=== PATIENT | female | born 1960 | race Asian ===

== ENCOUNTER → 2022-11-26 13:12 | Outpatient (BNVA) | payer MEDICARE, SELFPAY | PROVIDERS: PCP Internal Medicine; Visit Provider Dietitian, Registered | DX: E11.9 Type 2 diabetes mellitus without complications (principal) | CPT/HCPCS: 97802 ==

== ENCOUNTER 2025-07-27 14:39 | Outpatient (AMB) | payer MEDICARE, SELFPAY ==
--- NOTE | 2025-07-27 14:39 | A.PHYSOV ---
Intake Visit Reasons: right hip pain Intake Note: Patient is a 65 year old female in office today for a follow up visit on right hip pain. Head Baggage Porter Required: Yes Head Baggage Porter Name: rolo house [id number] Allergies No Known Allergies Allergy (Verified 07/27/25 14:40) HPI Comments Details: History of Present Illness The patient is a 65 year old female presenting for a follow-up visit for persistent lower back pain radiating to the right leg. She denies any recent injury. An MRI of the lumbar-sacral spine from February 12, 2023, revealed an L5-S1 disc herniation. She reports her pain is now more severe and is present even when walking or lying down. Associated symptoms include right leg swelling, weakness, and recurrent falls. The pain is also localized over the right ischial tuberosity. Previous treatments include a right L5 transforaminal injection on July 26, 2023, and a sacroiliac joint injection on September 07, 2023, neither of which provided relief. She was previously advised to use a pillow to relieve pressure on the ischial area while sitting, but reports she does not have one with a hole. She has tried Tylenol for pain relief. In her past medical history, she received a right shoulder subacromial injection on November 18, 2023, and reports her shoulder is now feeling better. Since her last follow-up visit she has been exercising regularly. Unfortunately pain has been getting progressively worse. She reports more progressive weakness at this time. She reports pain in the right L5/S1 dermatomal distribution. Pain is rated 8/10. Pain Description - Location: The patient reports persistent lower back pain that radiates to the right leg and is also localized over the right ischial tuberosity. - Severity: The pain has become more severe. - Associated Symptoms: She experiences right leg swelling, weakness in the entire leg, and has had multiple falls. - Exacerbating Factors: Pain is worse with walking, standing, and sitting, and is also present when lying down. - Relieving Factors: She reports feeling better when sitting on a pillow. Results - Imaging: - Lumbar sacral spine MRI (02/12/23): Consistent with L5-S1 disc herniation. [facility] Medical History (Updated 07/27/25 @ 15:07 by Aravind Silver DO) Lumbar radiculitis Lumbar disc herniation Surgical History H/O splenectomy History of Social History Alcohol intake: current Alcohol intake frequency: does not drink Patient Tobacco Use Status: Never used Tobacco Current occupational status: unemployed Review of Systems Narrative Review of Systems - Musculoskeletal: Reports severe lower back pain radiating to the right leg. - Reports right shoulder pain is resolved. - Neurological: Reports right leg weakness. - Constitutional: Denies recent injury. - Extremities: Reports right leg swelling. - Balance/Gait: Reports frequent falls. Physical Exam Exam Exam: Physical Exam - Musculoskeletal: Tenderness is localized over the right ischial tuberosity area upon palpation. - Lower extremities appear straight on gross inspection. Dural tension signs were positive for right lower extremity. Neurological examination was nonfocal. Bilateral Achilles and patellar reflexes were symmetric. No focal motor deficits on examination were appreciated. SI provocative maneuvers were negative. Assessment & Plan Assessment & Plan (1) Lumbar disc herniation: Code(s): M51.26 - Other intervertebral disc displacement, lumbar region Category: Medical (2) Lumbar radiculitis: Code(s): M54.16 - Radiculopathy, lumbar region Category: Medical Plan Pain Management - Analgesia: The patient reports severe pain that has not been relieved by a prior right L5 transforaminal injection or a sacroiliac joint injection. - She has used Tylenol but has not tried other [id number] medications. - Activities of Daily Living: Her pain interferes with walking, standing, and sitting. - It has led to weakness in her right leg and multiple falls. - Affect: The patient states, Pain is my entire life, indicating a significant negative impact on her quality of life. - Adverse Effects: Not discussed. - Aberrant Drug Related Behaviors: Not discussed. Services of a professional [employer] motor vehicle parts interpreter was utilized during today's examination. Plan Patient was informed and verbally consented to the use of an ambient scribe for clinic note documentation during this visit. 1. Chronic Lower Back Pain With Right Leg Radiculopathy The patient's chronic lower back pain has worsened, with new symptoms including right leg swelling, weakness, and falls, despite previous unsuccessful injections. Given the significant change in symptoms and that the prior MRI was from January 2023, a repeat lumbar spine MRI is warranted to assess for any new or worsening pathology. An order will be placed for a repeat MRI of the lumbar spine at [facility], and they will contact the patient for scheduling. For pain management, it is recommended she take acetaminophen (Tylenol) 500 mg, two tablets three times daily, which is available [id number]. She is advised to use a pillow to relieve pressure on the ischial tuberosity when sitting. The patient will schedule a follow-up appointment in approximately one month to discuss the MRI results and further treatment options, such as injections or surgery. Discussion Notes I discussed with the patient that her symptoms of lower back pain have significantly worsened since her last visit. I explained that due to this change and the new symptoms of leg swelling and weakness, a new MRI of her lumbar spine is necessary, as her previous one was from over a year ago. I informed her that I will place the order and the imaging facility will call her to schedule the appointment. For pain control, I recommended she start with [id number] acetaminophen (Tylenol) 500 mg, taking two pills three times a day, and explained this is a safe dose. I reiterated the recommendation to use a specialized pillow to relieve pressure while sitting. I advised her to schedule a follow-up visit in about one month, emphasizing that the MRI must be completed before the appointment so we can discuss the results and decide on the next steps, which could include further injections or a surgical consultation. Patient Instructions - An order for an MRI of your lower back will be sent to [facility]. - They will call you to schedule the appointment. - For pain relief, you can buy Tylenol 500 mg (also called acetaminophen) from any pharmacy. - Take 2 pills, 3 times a day as needed for pain. - Use a special pillow with a cutout when sitting to help reduce pressure on the painful area. - Please make a follow-up appointment to see me in about one month. - It is important that you have the MRI done before this follow-up visit so we can discuss the results and decide on the next steps for your treatment. Orders: Orders MR lumbar spine wo con Today M51.26 - Other intervertebral disc displacement, lumbar region, M54.16 - Radiculopathy, lumbar region Coding Level of Care Code Est Pt Level 4 (56728) Complex visit Add On G2211 Diagnoses Lumbar disc herniation M51.26 Lumbar radiculitis M54.16
== END 2025-07-27 15:10 | disposition home or self-care (01) ==
LOC: HO.HPHYS 14:39
PROVIDERS: PCP Internal Medicine; Visit Provider Physical Medicine & Rehabilitation
DX: M51.26 Other intervertebral disc displacement, lumbar region (principal); M54.16 Radiculopathy, lumbar region
CPT/HCPCS: 99214; G2211

== ENCOUNTER → 2025-07-27 14:39 | Outpatient (BNVA) | payer MEDICARE, SELFPAY | PROVIDERS: PCP Internal Medicine; Visit Provider Physical Medicine & Rehabilitation | DX: M51.16 Intervertebral disc disorders with radiculopathy, lumbar region (principal); M54.50 Low back pain, unspecified; G89.29 Other chronic pain | CPT/HCPCS: 99212 ==